=== PATIENT | female | born 1960 | race Caucasian/White ===

== ENCOUNTER 2023-03-29 12:22 | Emergency (ER) | payer OTHER, SELFPAY ==
[2023-03-29] VITALS (18 sets, daily range): BP systolic 157–222; BP diastolic 64–80; PULSE 55–71; RESP 13–20; TEMP 36.4; O2SAT 92–99
[2023-03-29] MEDS: KETOROLAC 30 MG/ML VIAL (*BKC) IV PUSH (13:25)
[2023-03-29 13:42] LABS: Basophils Absolute Auto 0.1 K/mm3 (0.0-0.1); Basophils Percent Auto 0.7 % (0.2-1.2); Eosinophils Absolute Auto 0.2 K/mm3 (0-0.3); Eosinophils Percent Auto 1.8 % (0-4.4); Hemoglobin 13.9 g/dL (12.0-15.0); Immature Granulocyte Absolute 0.03 K/mm3 (0.00-0.031); Immature Granulocyte Percent A 0.4 % (0-0.5); Lymphocytes Absolute Auto 1.48 K/mm3 (0.9-3.2); Lymphocytes Percent Auto 17.8 % (18.3-44.2); Mean Corpuscular HGB Conc 33.9 g/dl (32-36); Mean Corpuscular Hemoglobin 32.6 pg (26-34); Mean Corpuscular Volume 96.2 fl (80-100); Mean Platelet Volume 11.2 fl (7.4-10.4); Monocytes Absolute Auto 0.5 K/mm3 (0.1-0.6); Monocytes Percent Auto 5.9 % (2.6-8.5); Neutrophils Absolute Auto 6.1 K/mm3 (1.3-6.7); Neutrophils Percent Auto 73.4 % (45.5-73.1); Platelet Count Result 229 k/mm3 (150-375); Red Blood Count 4.26 M/mm3 (4.2-5.4); Red Cell Distribution Width 12.2 % (11.5-14.5); White Blood Count 8.3 K/mm3 (4.5-10.0)
[2023-03-29 13:54] LABS: Alanine Aminotransferase 28 U/L (6-35); Albumin Level 4.2 g/dL (3.5-5.1); Alkaline Phosphatase 113 U/L (38-126); Anion Gap 4 mmol/L (8-16); Aspartate Amino Transferase 34 U/L (14-36); Bilirubin,Total 0.6 mg/dL (0.2-1.3); Blood Urea Nitrogen 13 mg/dL (7-17); Calcium 8.9 mg/dL (8.4-10.2); Carbon Dioxide 30 mmol/L (22-30); Chloride 103 mmol/L (98-107); Estimated CRCL calculation 60 ml/min; Estimated Glomerular Filt Rate > 60; Glucose 109 mg/dL (65-110); Sodium 137 mmol/L (137-145)
--- NOTE | 2023-03-29 14:48 | ED.GENADULT ---
HPI - General Adult General Chief complaint: Recheck/Abnormal Lab/Rx Stated complaint: B arm tingling/numbness Time Seen by Provider: 03/29/23 12:49 History of Present Illness HPI narrative: Patient is a 62-year-old female who presents ER with tingling in bilateral fifth digits of the hands. Ongoing over the last couple of weeks. Patient denies trauma or injury. No chest pain or chest pressure. No exertional component. No focal weakness. No slurred speech or facial droop. Patient has chronic hypertension and not taking any hypertensive medication. She finds that when she takes [id number] pain medication she will have improvement of her tingling. 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 Related Data Home Medications Medication Instructions Recorded Confirmed blood sugar diagnostic (GE100 #10 ea 08/25/19 Blood Glucose Test Strip) Allergies Allergy/AdvReac Type Severity Reaction Status Date / Time No Known Allergies Allergy Unverified 06/17/19 16:14 Review of Systems Review of Systems: All systems reviewed & are unremarkable except as noted in HPI and below Constitutional: Constitutional: Denies chills and Denies fever(s) ENT: Denies nasal congestion and Denies sore throat Cardiovascular: Cardiovascular: Denies chest pain, Denies rapid heart rate and Denies radiating jaw, neck or arm pain Respiratory: Respiratory: Denies cough and Denies dyspnea Gastrointestinal: Gastrointestinal: Denies abdominal pain, Denies nausea and Denies vomiting Neurologic: Denies headache(s), Denies focal weakness and Denies numbness Comments: Paresthesias of the fingers PMFSH Past Medical History Medical History (Updated 03/29/23 @ 15:09 by Terrell Merino MD) Hypertension Surgical History Surgical History (Updated 03/29/23 @ 15:09 by Terrell Merino MD) No pertinent past surgical history Family History Family History Father Hypertension Mother Patient's mother is , Onset Age: 87 Social History Social History Smoking status: Current every day smoker Alcohol intake: never Exam Narrative: GENERAL: Well-appearing, well-nourished, and in no acute distress. HEAD: Normocephalic, atraumatic. ENT: Mucous membranes moist. CHEST: Clear to auscultation. No respiratory distress. HEART: Regular rate and rhythm. Normal peripheral pulses. EXTREMITIES: Normal range of motion. No edema. Mild change in numbness with carpal tunnel compression bilaterally. SKIN: Warm, dry, no rash. NEURO: No facial droop. Clear speech, no dysarthria. Sensation in hands and alert and oriented x3. PSYCH: Normal mood and affect Course Vital Signs Vital signs: Vital Signs Temperature 97.6 F 03/29/23 12:28 Pulse Rate 71 03/29/23 12:28 Respiratory Rate 18 03/29/23 12:28 Blood Pressure 202/64 H 03/29/23 12:28 Pulse Oximetry 96 03/29/23 12:28 Oxygen Delivery Room Air 03/29/23 12:28 Temperature 97.6 F 03/29/23 12:28 Pulse Rate 58 L 03/29/23 15:01 Respiratory Rate 20 03/29/23 15:01 Blood Pressure 174/65 H 03/29/23 15:01 Pulse Oximetry 95 03/29/23 15:01 Oxygen Delivery Room Air 03/29/23 12:28 Medical Decision Making [facility] Narrative Medical decision making narrative: -Presentation: 62-year-old female presenting to the ER with tingling in bilateral fourth digits. 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 Blood pressure variable between 150 and 200 while in the ER. -Discussion of Management/Consultants: none -Dx te
== END 2023-03-29 15:23 | disposition home or self-care (01) ==
PROVIDERS: Emergency Provider Emergency Medicine
DX: G56.03 Carpal tunnel syndrome, bilateral upper limbs (principal); I10 Essential (primary) hypertension; F17.200 Nicotine dependence, unspecified, uncomplicated
CPT/HCPCS: 36415; 80053; 85025; 96374; 99284; J1885

== ENCOUNTER 2024-03-13 15:43 | Emergency (ER) | payer OTHER, SELFPAY ==
--- NOTE | 2024-03-13 15:46 | ED.GENADULT ---
HPI - General Adult General Chief complaint: Unspecified Stated complaint: ELEVATED BLOOD PRESSURE Time Seen by Provider: 03/13/24 15:57 Source: patient, RN notes reviewed and old records reviewed Mode of arrival: ambulatory Limitations: no limitations History of Present Illness HPI narrative: 63-year-old female presents to the [facility] with concerns for elevated blood pressure. States that she took her BP in [employer] last night. Patient reports that she was on medication a year ago and stopped taking it because her blood pressure was controlled Patient denies having a primary care provider Patient denies any symptoms. Denies any chest pain, shortness of breath, headaches, blurry vision. Treatments prior to arrival: none Related Data Home Medications Medication Instructions Recorded Confirmed blood sugar diagnostic (GE100 #10 ea 08/25/19 Blood Glucose Test Strip) Allergies Allergy/AdvReac Type Severity Reaction Status Date / Time No Known Allergies Allergy Unverified 06/17/19 16:14 Review of Systems Review of Systems: All systems reviewed & are unremarkable except as noted in HPI and below Constitutional: Constitutional: Reports no additional constitutional complaints Eyes: Eyes: Reports no additional eye complaints ENT: Reports system reviewed and no additional complaints, except as documented Cardiovascular: Cardiovascular: Reports no additional cardiovascular complaints, Denies chest pain and Denies dyspnea Comments: Elevated blood pressure Respiratory: Respiratory: Reports no additional respiratory complaints, Denies chest congestion, Denies cough and Denies dyspnea Gastrointestinal: Gastrointestinal: Reports no additional gastrointestinal complaints, Denies abdominal pain, Denies nausea and Denies vomiting Musculoskeletal: Musculoskeletal: Reports no additional musculoskeletal complaints Integumentary/Breasts: Skin/Breast: Reports system reviewed and no additional complaints, except as docu Neurologic: Reports system reviewed and no additional complaints, except as documented Psychiatric: Psychiatric: Reports no additional psychiatric complaints Allergic/Immunologic: Allergic/Immunologic: Reports no additional allergic/immunologic complaints PMFSH Past Medical History Medical History Hypertension Surgical History Surgical History No pertinent past surgical history Family History Family History Father Hypertension Mother Patient's mother is , Onset Age: 87 Social History Social History (Reviewed 03/13/24 @ 16:05 by PAMELA Landaverde Smoking status: Current every day smoker Alcohol intake: never Comments At the time of my signature, I reviewed and agree with the nursing past medical, surgical, social, and family history. There is no relevant family history pertinent to the patient complaint. Exam Const: General: cooperative, healthy appearing, comfortable, no acute distress, well developed, alert and well nourished Nutritional Appearance: well nourished Orientation/consciousness: patient oriented x3 Limitations: no limitations HENMT: Head: normal to inspection Ears: hearing grossly normal bilaterally and external ears normal Face/Nose/Sinus: Normal external nose present, Normal nares present, Normal nasal mucous membranes and turbinates present, normal facial exam and face symmetric Face and sinus: normal facial exam and face symmetric Eyes: General: appearance normal, both eyes and all related structures Alignment and Position: alignment normal Periorbital: periorbital findings normal Pupils: Equal, round and reactive pupils present EOM: EOMs intact bilaterally Neck: Neck: normal visual inspection, full ROM, no lymphadenopathy and no meningeal signs Chest: Chest palpation &
[2024-03-13 15:57] VITALS: BP 228/84; PULSE 77; RESP 16; TEMP 36.6; O2SAT 98
[2024-03-13 16:06] VITALS: BP 218/80
== END 2024-03-13 16:06 | disposition short-term general hospital (02) ==
PROVIDERS: Emergency Provider Nurse Practitioner
DX: I10 Essential (primary) hypertension (principal); F17.200 Nicotine dependence, unspecified, uncomplicated
CPT/HCPCS: 99212; G0463

== ENCOUNTER 2024-03-13 16:23 | Emergency (ER) | payer OTHER, SELFPAY ==
[2024-03-13 16:28] VITALS: BP 209/77; PULSE 87; RESP 16; TEMP 36.5; O2SAT 99
[2024-03-13 17:49] VITALS: BP 183/61; PULSE 58; TEMP 36.7; O2SAT 98
[2024-03-13 19:41] VITALS: BP 218/63; PULSE 57; RESP 14; O2SAT 96
--- NOTE | 2024-03-13 19:43 | ECG_ITS ---
Test Date: 2024-03-13 20:13:04 Measurements Intervals Harrison Rate: 56 P: 48 WV: 168 QRS: 19 QRSD: 85 T: 34 QT: 418 QTc: 405 Interpretive Statements SINUS BRADYCARDIA OTHERWISE NORMAL ECG No previous ECG available for comparison Electronically Signed On 03-14-2024 12:22:37 CDT by Boaz Keane M.D.
[2024-03-13] MEDS: amLODIPine BESYLATE 10 MG TABLET PO (20:13)
[2024-03-13 20:34] VITALS: BP 184/93; PULSE 54; RESP 15; O2SAT 96
[2024-03-13 21:00] LABS: Basophils Percent Auto 0.5 % (0.2-1.2); Eosinophils Absolute Auto 0.1 K/mm3 (0-0.3); Eosinophils Percent Auto 1.3 % (0-4.4); Hematocrit 41.3 % (37.0-47.0); Hemoglobin 14.2 g/dL (12.0-15.0); Immature Granulocyte Absolute 0.02 K/mm3 (0.00-0.031); Immature Granulocyte Percent A 0.3 % (0-0.5); Lymphocytes Absolute Auto 2.78 K/mm3 (0.9-3.2); Lymphocytes Percent Auto 45.3 % (18.3-44.2); Mean Corpuscular HGB Conc 34.4 g/dl (32-36); Mean Corpuscular Hemoglobin 33.2 pg (26-34); Mean Corpuscular Volume 96.5 fl (80-100); Mean Platelet Volume 11.1 fl (7.4-10.4); Monocytes Absolute Auto 0.5 K/mm3 (0.1-0.6); Monocytes Percent Auto 7.8 % (2.6-8.5); Neutrophils Absolute Auto 2.8 K/mm3 (1.3-6.7); Neutrophils Percent Auto 44.8 % (45.5-73.1); Platelet Count Result 231 k/mm3 (150-375); Red Blood Count 4.28 M/mm3 (4.2-5.4); Red Cell Distribution Width 12.3 % (11.5-14.5); White Blood Count 6.1 K/mm3 (4.5-10.0)
[2024-03-13 21:11] LABS: Anion Gap 8 mmol/L (4-12); Blood Urea Nitrogen 13 mg/dL (7-17); Calcium 9.2 mg/dL (8.4-10.2); Carbon Dioxide 25 mmol/L (22-30); Chloride 102 mmol/L (98-107); Estimated Glomerular Filt Rate > 60; Glucose 92 mg/dL (65-110); Potassium 3.9 mmol/L (3.4-5.0); Sodium 135 mmol/L (137-145)
--- NOTE | 2024-03-14 01:31 | ED.RECABL ---
HPI - Recheck/Abnormal Lab/Rx General Chief Complaint: Recheck/Abnormal Lab/Rx Stated Complaint: HTN Time Seen by Provider: 03/13/24 19:41 History of Present Illness HPI narrative: Patient has not seen a doctor in multiple years and was walking past of blood pressure cuff at [facility] when she decided to take her blood pressure, it apparently was alarmingly high, and that is why she came into the emergency room today. She thinks that she may have had high blood pressure in the past and was on medications however she no longer had medical insurance so stop seeing a doctor. She is denying any symptoms to me at this time Related Data Allergies Allergy/AdvReac Type Severity Reaction Status Date / Time No Known Allergies Allergy Verified 03/13/24 19:16 Review of Systems Review of Systems: All systems reviewed & are unremarkable except as noted in HPI and below PMFSH Past Medical History Medical History Hypertension Surgical History Surgical History No pertinent past surgical history Family History Family History Father Hypertension Mother Patient's mother is , Onset Age: 87 Social History Social History Smoking status: Current every day smoker Alcohol intake: never Exam Narrative: EXAMINATION OF ORGAN SYSTEMS/BODY AREAS: Constitutional: Vital signs per nursing GENERAL:[No acute distress, non-toxic appearing.] HEAD: Normal with no signs of head trauma. EYES: EOMI, conjunctiva normal ENT: Hearing grossly intact LUNGS: Nonlabored breathing. HEART: [Regular rate and rhythm] ABD: [Soft], [nontender to palpation] EXT: Normal range of motion SKIN: [No rashes or lesions.] NEURO: [Alert and oriented x 3. No gross focal sensory or strength deficits.] PSYCH: Normal affect Course Vital Signs Vital signs: Vital Signs Temperature 97.7 F 03/13/24 16:28 Pulse Rate 87 03/13/24 16:28 Respiratory Rate 16 03/13/24 16:28 Blood Pressure 209/77 H 03/13/24 16:28 Pulse Oximetry 99 03/13/24 16:28 Temperature 98.1 F 03/13/24 17:49 Pulse Rate 54 L 03/13/24 20:34 Respiratory Rate 15 03/13/24 20:34 Blood Pressure 184/93 H 03/13/24 20:34 Pulse Oximetry 96 03/13/24 20:34 MDM - Recheck/Abnormal Lab/Rx MDM Narrative Medical decision making narrative: Patient with asymptomatic hypertension. No signs or symptoms of end organ dysfunction; no chest pain or shortness of breath, neurological deficits, severe headaches, visual disturbance, oliguria, or symptoms of dissection/AAA). As she has not seen doctors in years I did get some basic baseline labs which are within acceptable limits, an EKG which shows sinus bradycardia rate 56, WA 160, QRS 85 QTC 405, normal axis, no ST elevations depressions, on my independent interpretation no obvious signs of acute ischemia Long-term risks of hypertension, especially uncontrolled, were discussed including increased risks of kidney disease, vascular disease, stroke and heart disease. We discussed lifestyle modifications including diet and exercise. I will start patient on amlodipine here and provide script for short course, patient expressed understanding of the instructions and strongly advised to follow-up with PMD for further management. Lab Data 03/13/24 20:51 03/13/24 20:51 Labs: Lab Results 03/13/24 Range/Units 20:51 WBC 6.1 (4.5-10.0) K/mm3 RBC 4.28 (4.2-5.4) M/mm3 Hgb 14.2 (12.0-15.0) g/dL Hct 41.3 (37.0-47.0) % MCV 96.5 (80-100) fl MCH 33.2 (26-34) pg MCHC 34.4 (32-36) g/dl RDW 12.3 (11.5-14.5) % Plt Count 231 (150-375) k/mm3 MPV 11.1 H (7.4-10.4) fl Immature Gran % (Auto) 0.3 (0-0.5) % Neut % (Auto) 44.8 L (45.5-73.1) % Lymph % (
== END 2024-03-13 21:39 | disposition home or self-care (01) ==
PROVIDERS: Emergency Provider Emergency Medicine
DX: I10 Essential (primary) hypertension (principal); R00.1 Bradycardia, unspecified
CPT/HCPCS: 36415; 80048; 85025; 93005; 99283; A9270

== ENCOUNTER 2024-03-28 12:04 | Outpatient (CLI) | payer OTHER, SELFPAY ==
--- NOTE | ~2024-03-28 | XR_ITS ---
Clinical Indication: Tobacco use PA and lateral views of the chest: Comparison: None Findings: The lungs are clear, without evidence of focal consolidation or pleural effusion. Cardiome diastinal silhouette is within normal limits. Bones and soft tissues are unremarkable. Impression: Normal chest. Reviewed, dictated and finalized at location . Impression: Normal chest.
[2024-03-28 13:11] LABS: Add Urine Microscopic? YES; Appearance Urine Clear (Clear); Bacteria Urine Rare /hpf; Bilirubin Urine Negative (Negative); Blood Urine Trace (Negative); Color Urine Yellow (Yellow); Glucose Urine UA Negative (Negative); Ketones Urine Negative (Negative); Leukocyte Esterase Ur Trace LEU/UL (Negative); Nitrate Urine Negative (Negative); Non Pathogenic Casts 0-2; Protein Urine Negative (Negative); RBC Urine 0-2 /hpf (0-2); Specific Grav Ur 1.008 (1.001-1.035); Squamous Epithelial Cell Urine Occasional /hpf (Few); Urobilinogen Urine 0.2 mg/dL (<2.0)
[2024-03-28 14:00] LABS: Alanine Aminotransferase 24 U/L (6-35); Albumin Level 4.3 g/dL (3.5-5.1); Alkaline Phosphatase 104 U/L (38-126); Aspartate Amino Transferase 33 U/L (14-36); Bilirubin,Total 0.6 mg/dL (0.2-1.3)
[2024-03-28 14:11] LABS: Hemoglobin A1C 5.5 % (<5.7)
[2024-03-28 14:20] LABS: Free T4 Free Thyroxine 1.19 ng/mL (0.78-2.19)
[2024-03-28 14:34] LABS: Thyroid Stimulating Hormone 0.774 uIU/mL (0.465-4.680)
[2024-03-28 21:13] LABS: Creatinine Urine 44.3 mg/dL
[2024-03-28 21:18] LABS: Microalbumin Urine Random 6.2 mg/L (0-16.7)
== END 2024-03-28 12:05 | disposition home or self-care (01) ==
LOC: ANHIMG 12:10
PROVIDERS: Visit Provider Emergency Medicine
DX: Z00.00 Encounter for general adult medical examination without abnormal findings (principal); K21.9 Gastro-esophageal reflux disease without esophagitis; F17.210 Nicotine dependence, cigarettes, uncomplicated
CPT/HCPCS: 36415; 71046; 80076; 81001; 82043; 83036; 84439; 84443